=== PATIENT | female | born 1955 | race American Indian/Alaskan Native ===

== ENCOUNTER 2016-05-16 08:18 | Outpatient (CLI) | payer OTHER ==
--- NOTE | 2016-05-16 10:23 | Mammography Report ---
BILATERAL MAMMOGRAM: Compared to 09/14/11. CAD study utilized. FINDINGS: Predominance of adipose tissue bilaterally. No mass or microcalcification. Benign calcifications. Normal axilla. IMPRESSION: Benign findings. Annual follow-up recommended. BI-RADS CATEGORY: 2 = Benign ACR BI-RADS MAMMOGRAPHIC CODES: 0 = Needs additional imaging evaluation; 1 = Negative; 2 = Benign; 3 = Probably benign; 4 = Suspicious; 5 = Malignant; 6 = Known biopsy-proven malignancy COMMENT: 1. Dense breast tissue, i.e., adenosis, fibrocystic changes, etc., may obscure an underlying neoplasm. 2. Approximately 10% of cancers are not detected with mammography. 3. A negative mammography report should not delay biopsy if a clinically suspicious mass is present. COMMENT: Patient follow-up letters are generated in [employer].
== END 2016-05-16 08:19 | disposition home or self-care (01) ==
LOC: MAMMO 08:18
PROVIDERS: ATTEND Nurse Practitioner Family
DX: Z12.31 Encounter for screening mammogram for malignant neoplasm of breast (principal)
CPT/HCPCS: 77067; G0202

== ENCOUNTER 2017-01-21 19:16 | Emergency (ER) | payer OTHER ==
[2017-01-21 19:31] VITALS: BP 143/68
[2017-01-21] MEDS ORDERED: NORCO 5/325 PO ONE (20:44)
--- NOTE | 2017-01-21 20:44 | Emergency Department Report ---
ED Back Pain/Injury HPI - General Chief Complaint: Back Pain/Injury Stated Complaint: LEFT LOWER BACK/HIPS PAIN Time Seen by Provider: 01/21/17 20:12 Source: patient, family Mode of arrival: Ambulatory Limitations: No Limitations - History of Present Illness Initial Comments: Patient here complaining the right lower back pain that radiates to her right hip and leg. She said it's painful for her to walk. She said it started 2 weeks ago and denies any trauma. Denies any loss of bowel or bladder function. She denies any fever or chills. Denies any urinary burning frequency or urgency. Pain to her lower right back is 9 out of 10 and achy. Denies any abdominal pain. Denies any numbness or tingling to extremities. MD Complaint: back pain Onset/Timin -: week(s) Similar Symptoms Previously: No Place: home Radiation: right leg, other (right hip) Severity scale (0 -10): 9 Quality: aching Consistency: constant Improves With: immobilization Worsens With: movement Context: unknown Associated Symptoms: other (painful to walk). denies: confusion, weakness, chest pain, numbness, difficulty walking, cough, difficulty urinating, diaphoresis, incontinence, fever/chills, constipation, headaches, abdominal pain , loss of appetite, malaise, nausea/vomiting, rash, seizure, shortness of breath , syncope Treatments Prior to Arrival: NSAIDS - Related Data Home Medications Medication Instructions Recorded Confirmed Last Taken Carvedilol [Coreg] 10/30/13 10/30/13 10/30/13 Lisinopril/Hydrochlorothiazide 1 tab PO QDAY 10/30/13 10/30/13 10/30/13 [Zestoretic 20-12.5 mg] Previous Rx's Medication Instructions Recorded Last Taken Type Ondansetron [Zofran Odt] 4 mg PO Q4H PRN #7 tab.rapdis 10/30/13 Unknown Rx Cyclobenzaprine [Flexeril] 10 mg PO TID PRN #15 tablet 01/21/17 Unknown Rx Nitrofurantoin Monohyd/M-Cryst 100 mg PO Q12H #14 capsule 01/21/17 Unknown Rx [Macrobid 100 mg Capsule] traMADol [Ultram 50 MG tab] 50 mg PO Q6HR PRN #20 tablet 01/21/17 Unknown Rx Allergies Allergy/AdvReac Type Severity Reaction Status Date / Time No Known Allergies Allergy Verified 01/21/17 19:29 ED Review of Systems ROS: Stated complaint: LEFT LOWER BACK/HIPS PAIN Other details as noted in HPI Comment: All other systems reviewed and negative Constitutional: no symptoms reported Respiratory: no symptoms reported Cardiovascular: denies: chest pain, palpitations, dyspnea on exertion, edema, syncope, paroxysmal nocturnal dyspnea Gastrointestinal: denies: abdominal pain, nausea, vomiting, diarrhea, constipation Genitourinary: denies: urgency, dysuria, frequency, hematuria, discharge Musculoskeletal: back pain, arthralgia. denies: joint swelling, myalgia Skin: denies: rash Neurological: denies: headache, weakness, numbness, paresthesias, confusion, abnormal gait, vertigo ED Past Medical Hx - Past Medical History Previous Medical History?: Yes Hx Hypertension: Yes - Surgical History Past Surgical History?: Yes Additional Surgical History: , minor breast surgery several years ago. - Family History Family history: hypertension - Social History Smoking Status: Never Smoker Substance Use Type: None - Medications Home Medications: Home Medications Medication Instructions Recorded Confirmed Last Taken Type Carvedilol [Coreg] 10/30/13 10/30/13 10/30/13 History Lisinopril/Hydrochlorothiazide 1 tab PO QDAY 10/30/13 10/30/13 10/30/13 History [Zestoretic 20-12.5 mg] Ondansetron [Zofran Odt] 4 mg PO Q4H PRN #7 tab.rapdis 10/30/13 Unknown Rx Cyclobenzaprine [Flexeril] 10 mg PO TID PRN #15 tablet 01/21/17 Unknown Rx Nitrofurantoin Monohyd/M-Cryst 100 mg PO Q12H #14 capsule 01/21/17 Unknown Rx [Macrobid 100 mg Capsule] traMADol [Ultram 50 MG tab] 50 mg PO Q6HR PRN #20 tablet 01/21/17 Unknown Rx ED Physical Exam - General Limitations: No Limitations General appearance: alert, in no apparent distress - Head Head exam: Present: atraumatic, normocephalic, normal inspection - Eye Eye exam: Present: normal appearance, PERRL, EOMI. Absent: nystagmus Pupils: Present: normal accommodation - ENT ENT exam: Present: normal exam, normal orophraynx, mucous membranes moist - Neck Neck exam: Present: normal inspection, full ROM, other (no C-spine tenderness). Absent: tenderness, meningismus, lymphadenopathy, thyromegaly - Respiratory Respiratory exam: Present: normal lung sounds bilaterally. Absent: respiratory distress, wheezes, chest wall tenderness, accessory muscle use, decreased breath sounds - Cardiovascular Cardiovascular Exam: Present: regular rate, normal rhythm, normal heart sounds. Absent: systolic murmur, diastolic murmur - GI/Abdominal GI/Abdominal exam: Present: soft, normal bowel sounds. Absent: distended, tenderness, guarding, rebound, rigid, organomegaly, mass, bruit, pulsatile mass , hernia - Extremities Exam Extremities exam: Present: normal inspection, full ROM, normal capillary refill , other (no clubbing cyanosis or edema to extremity. +2 pulses to all extremities. No neurovascular compromise). Absent: tenderness, pedal edema, joint swelling, calf tenderness - Expanded Lower Extremity Exam Right Hip exam: Present: normal inspection, full ROM, pelvic stability. Absent: tenderness, swelling, abrasion, laceration, ecchymosis, deformity, crepidus, dislocation, erythema, external rotation, internal rotation, shortening Upper Leg exam: Present: normal inspection, full ROM. Absent: tenderness, swelling, abrasion, laceration, ecchymosis, deformity, crepidus, dislocation, erythema Knee exam: Present: normal inspection, full ROM, full knee extension. Absent: tenderness, swelling, abrasion, laceration, ecchymosis, deformity, crepidus, dislocation, erythema, effusion, pain w/ pronation/supination, posterior draw sign, pain/laxity with valgus, pain/laxity with varus Lower Leg exam: Present: normal inspection, full ROM. Absent: tenderness, swelling, abrasion, laceration, ecchymosis, deformity, crepidus, dislocation, erythema, palpable cord, Mirian's sign Ankle exam: Present: normal inspection, full ROM. Absent: tenderness, swelling , abrasion, laceration, ecchymosis, deformity, crepidus, dislocation, erythema Foot/Toe exam: Present: normal inspection, full ROM. Absent: tenderness, swelling, abrasion, laceration, ecchymosis, deformity, crepidus, dislocation, erythema, amputation, puncture wound, foreign body, calcaneal tenderness, tenderness at base of 5th metatarsal, nail avulsion, subungual hematoma Neuro vascular tendon exam: Present: no vascular compromise. Absent: pulse deficit, abnormal cap refill, motor deficit, sensory deficit, tendon deficit, extremity cold to touch, pallor, abnormal 2-point discrimination, decreased fine /light touch, foot drop, peroneal nerve deficit, significant pain with passive ROM of distal joint Gait: Positive: observed and normal - Back Exam Back exam: Present: normal inspection, full ROM. Absent: tenderness, CVA tenderness (R), CVA tenderness (L), muscle spasm, paraspinal tenderness, vertebral tenderness, rash noted - Expanded Back Exam Expanded Back exam: Absent: saddle anesthesia Back exam: Negative Straight Leg Raising: Left, Right - Neurological Exam Neurological exam: Present: alert, oriented X3, normal gait, reflexes normal. Absent: motor sensory deficit - Expanded Neurological Exam Expanded Neurological exam: Absent: innattentive, memory loss-remote event, memory loss- recent event, ataxia, receptive aphasia, expressive aphasia, total aphasia, tremor, protecting the airway Patient oriented to: Present: person, place, time Speech: Present: fluid speech Cranial nerves: EOM's Intact: Normal, Gag Reflex: Normal, Tongue Deviation: Normal, Nystagmus: Normal, Facial Sensation: Normal Cerebellar function: Romberg: Normal Upper motor neuron: Pronator Drift: Normal, Sensory Extinction: Normal Sensory exam: Upper Extremity Light Touch: Normal, Upper Extremity Temperature: Normal, UE 2 Point Discrimination: Normal, Lower Extremity Light Touch: Normal, Lower Extremity Temperature: Normal, LE 2 Point Discrimination: Normal Motor strength exam: RUE: 5, LUE: 5, RLE: 5, LLE: 5 DTR: bicep (R): 2+, bicep (L): 2+, tricep (R): 2+, tricep (L): 2+, knee (R): 2+ , knee (L): 2+, ankle (R): 2+, ankle (L): 2+ Best Eye Response (Familia): (4) open spontaneously Best Motor Response (Familia): (6) obeys commands Best Verbal Response (Familia): (5) oriented [place] Total: 15 - Psychiatric Psychiatric exam: Present: normal affect, normal mood - Skin Skin exam: Present: warm, dry, intact, normal color. Absent: rash ED Course Vital Signs 01/21/17 19:29 Temperature 99.4 F Pulse Rate 68 Respiratory 18 Rate Blood Pressure 143/68 O2 Sat by Pulse 98 Oximetry - Reevaluation(s) Reevaluation #1: 01/21/17 22:38 Patient given [place] 5/325 2 tablets emergency room and Flexeril 10 mg by mouth to manage pain which she said her pain is ventilatory dependent. She is also given Rocephin 1 g IM for urinary tract infection. ED Medical Decision Making - Lab Data Lab Results 01/21/17 Range/Units 20:50 Urine Color Yellow (Yellow) Urine Turbidity Clear (Clear) Urine pH 6.0 (5.0-7.0) Ur Specific [place] 1.012 (1.003-1.030) Urine Protein <15 mg/dl (Negative) mg/dL Urine Glucose (UA) Neg (Negative) mg/dL Urine Ketones Neg (Negative) mg/dL Urine Blood Sm (Negative) Urine Nitrite Neg (Negative) Urine Bilirubin Neg (Negative) Urine Urobilinogen < 2.0 (<2.0) mg/dL Ur Leukocyte Esterase Lg (Negative) Urine WBC (Auto) 17.0 H (0.0-6.0) /HPF Urine RBC (Auto) 5.0 (0.0-6.0) /HPF U Epithel Cells (Auto) 3.0 (0-13.0) /HPF Urine Bacteria (Auto) 1+ (Negative) /HPF Urine culture sent and pending - Radiology Data Radiology results: report reviewed CT scan of lumbar spine reveals patient with degenerative disease. There is no spondylolisthesis or spondylolysis. There are small posterior disc protrusion at L3 to 4, L4 to 5 and L5 to S1. The spinal canal appears widely patent. The posterior element appears intact. There is mild osteoarthritis involved the facet joints at L4 to 5 and L5 to S1. The paravertebral soft tissue are unremarkable - Medical Decision Making ED course: Patient here complaining of right lower back pain or radiation down to her hip and her right leg. Urinalysis done and patient found to have large amount of leukocyte Estrace, positive bacteria positive white blood cell and small amount of blood. Patient with acute cystitis with hematuria and also with degenerative disc disease to her lumbar spine which some disc bulge into her lumbar spine. Communicative the patient and I discussed with her that she' ll need to follow-up with orthopedic doctor for further evaluation and possible MRI. I also discussed with her that her urinalysis shows that she has seen her tract infection and she needs to follow up with her primary care physician which she does have 1 in 3-5 days. She voiced understanding of discharge instruction and treatment plan. Urine culture sent and pending. Patient back pain controlled with [place] 5/325 2 tablets and Flexeril 10 mg PO which she said helps her pain. She was given Rocephin 1 g IM to cover urinary tract infection. Patient discharged home in stable condition with her family with prescription for Ultram, Flexeril and Macrobid. Critical care attestation.: If time is entered above; I have spent that time in minutes in the direct care of this critically ill patient, excluding procedure time. ED Disposition Clinical Impression: Acute cystitis with hematuria, Lumbar radiculopathy, right, Protrusion of lumbar intervertebral disc Degenerative disk disease Qualifiers: Spinal region: lumbosacral Qualified Code(s): M51.37 - Other intervertebral disc degeneration, lumbosacral region Back pain, acute Qualifiers: Back pain location: low back pain Back pain laterality: right Sciatica presence : with sciatica Sciatica laterality: sciatica of right side Qualified Code(s): M54.41 - Lumbago with sciatica, right side Disposition: DC-01 TO HOME OR SELFCARE Is pt being admited?: No Does the pt Need Aspirin: No Condition: Stable Instructions: Back Pain (ED), Lumbar Radiculopathy (ED), Arthralgia (ED), Urinary Tract Infection in Women (ED), Degenerative Disc Disease (ED), Lumbar Disc Herniation (ED) Additional Instructions: Please follow up with orthopedic doctor as instructed. You Have arthritis in you lower back and will possibly need to have MRI. Please do not drive or operate heavy machinery while taking in Ultram and Flexeril as these medication causes drowsiness Increase fluid intake Follow-up E primary care physician as instructed Take Macrobid for urinary tract infection Prescriptions: Cyclobenzaprine [Flexeril] 10 mg PO TID PRN #15 tablet PRN Reason: Muscle Spasm Nitrofurantoin Monohyd/M-Cryst [Macrobid 100 mg Capsule] 100 mg PO Q12H #14 capsule traMADol [Ultram 50 MG tab] 50 mg PO Q6HR PRN #20 tablet PRN Reason: Pain Referrals: PRIMARY CARE, [Primary Care Provider] - 2-3 Days NAY AVILES MD [Staff Physician] - 3-5 Days Forms: Work/School Release Form(ED)
[2017-01-21] MEDS ORDERED: FLEXERIL PO ONE (20:45)
[2017-01-21 21:15] LABS: Bacteria,Urine 1+ /HPF (Negative); Bilirubin,Urine NEG (Negative); Blood,Urine SM (Negative); Ketones,Urine NEG (Negative); Leukocyte Esterase,Urine LG (Negative); Nitrite,Urine NEG (Negative); Protein,Urine <15 mg/dL mg/dL (Negative); Urobilinogen,Urine < 2.0 mg/dL (<2.0)
--- NOTE | 2017-01-21 21:57 | Cat Scan Report ---
FINAL REPORT PROCEDURE: CT lumbar spine without contrast. TECHNIQUE: Computerized axial tomography of the lumbar spine was performed from T12 to the sacrum without contrast material. HISTORY: Low back pain with sciatica. COMPARISON: No prior studies are available for comparison. FINDINGS: The lumbar vertebrae have normal height and alignment. There are no fractures. There is no spondylolysis. There is no spondylolisthesis. There are small posterior disc protrusions at L3-4, L4-5 and L5-S1. These are better evaluated by MRI scanning. There is moderate disc space narrowing and vacuum phenomenon at L5-S1. The spinal canal appears widely patent. The posterior elements appear intact. There is mild osteoarthritis involving the facet joints at L4-5 and L5-S1. The paravertebral soft tissues are unremarkable. IMPRESSION: Degenerative disease as described.
[2017-01-21] MEDS ORDERED: ROCEPHIN IM STA (22:36)
[2017-01-21] MEDS ORDERED: XYLOCAINE 1% MPF 5 mL INFILTRATI ONE (22:36)
== END 2017-01-21 23:05 | disposition home or self-care (01) ==
LOC: ED 19:16
DX: M51.26 Other intervertebral disc displacement, lumbar region (principal); M51.37 Other intervertebral disc degeneration, lumbosacral region; M54.41 Lumbago with sciatica, right side; N30.01 Acute cystitis with hematuria; I10 Essential (primary) hypertension
CPT/HCPCS: 72131; 81001; 87086; 96372; 99284; J0696